=== PATIENT | female | born 1990 | race African-American/Black ===

== ENCOUNTER 2016-04-16 08:49 | Emergency (ER) | payer OTHER ==
[~2016-04-16] VITALS: Ht 180.3 cm; Wt 113.5 kg
[~2016-04-16 08:49] MED LIST: ACYC200C PO; DIVA500T69 PO; LURA80 PO; VITAD1000 PO
[2016-04-16 09:24] VITALS: BP 140/77
== END 2016-04-16 10:20 | disposition left against medical advice (07) ==
LOC: EMS 08:51
DX: R11.2 Nausea with vomiting, unspecified (principal); R19.7 Diarrhea, unspecified; K21.9 Gastro-esophageal reflux disease without esophagitis; F12.90 Cannabis use, unspecified, uncomplicated; F17.210 Nicotine dependence, cigarettes, uncomplicated; Z53.21 Procedure and treatment not carried out due to patient leaving prior to being seen by health care provider

== ENCOUNTER 2020-12-03 06:47 | Inpatient (IN) | payer MEDICAID, MEDICARE, OTHER ==
[~2020-12-03] VITALS: Ht 180.3 cm; Wt 121.3 kg
[~2020-12-03 06:47] MED LIST changes: -ACYC200C PO; +ACYC200C24 PO; -LURA80 PO; +LURA80TA2 PO; -VITAD1000 PO
[2020-12-03] MEDS ORDERED: LORazepam 2 MG/ML VIAL IM ONE (07:30)
[2020-12-03] MEDS ORDERED: HALOPERIDOL LACTATE 5 MG/ML VIAL IM ONE (07:30)
[2020-12-03 07:46] LABS: BASOPHILS % (AUTO) 0.5 % (0.0-2.0); EOSINOPHILS % (AUTO) 0.1 % (1.0-6.0); HEMATOCRIT 38.9 % (36-46); HEMOGLOBIN 13.1 g/dL (12.0-16.0); LYMPHOCYTES # (AUTO) 2.4 K/uL (1.0-4.8); LYMPHOCYTES % (AUTO) 22.5 % (22.0-44.0); MEAN CORPUSCULAR HEMOGLOBIN 29.9 pg (26.0-34.0); MEAN CORPUSCULAR HGB CONC 33.7 G/dL (31.0-37.0); MEAN CORPUSCULAR VOLUME 89 fL (80-100); MONOCYTES # (AUTO) 0.6 K/uL (0.1-1.0); MONOCYTES % (AUTO) 5.4 % (2.0-9.0); NEUTROPHILS # (AUTO) 7.5 K/uL (1.8-7.7); NEUTROPHILS % (AUTO) 71.5 % (40.0-70.0); PLATELET COUNT (AUTO) 216 K/uL (150-450); RED BLOOD CELL COUNT(AUTO) 4.38 MIL/uL (4.00-5.20); RED CELL DISTRIBUTION WIDTH 13.4 % (11.5-14.5)
[2020-12-03 08:08] LABS: ANION GAP 12 mmol/L (8-16); CALCIUM, TOTAL 8.4 mg/dL (8.8-10.5); CARBON DIOXIDE 23 mmol/L (22-29); CHLORIDE 103 mmol/L (98-107); CREATININE 0.91 mg/dL (0.60-1.30); GLOMERULAR FILTR. RATE CALC > 60 mL/min (>60); GLUCOSE,RANDOM 131 mg/dL (70-110); POTASSIUM 3.4 mmol/L (3.5-5.1); SODIUM SERUM 138 mmol/L (136-145); UREA NITROGEN, BLOOD 6 mg/dL (7-18)
[2020-12-03 08:13] LABS: ALANINE AMINOTRANSFERASE 24 U/L (12-78); ALBUMIN 3.8 g/dL (3.4-5.0); ALKALINE PHOSPHATASE 66 U/L (46-116); ASPARTATE AMINOTRANSFERASE 17 U/L (15-37); BILIRUBIN,TOTAL 0.3 mg/dL (0.1-1.0); TOTAL PROTEIN, SERUM 7.7 g/dL (6.4-8.2)
[2020-12-03 08:16] LABS: AMPHET/METH SCREEN,URINE NEGATIVE (NEGATIVE); BARBITURATE SCREEN, URINE NEGATIVE (NEGATIVE); BENZODIAZEPINES SCREEN,URINE NEGATIVE (NEGATIVE); CANNABINOID SCREEN,URINE POSITIVE (NEGATIVE); COCAINE SCREEN,URINE NEGATIVE (NEGATIVE); METHADONE SCREEN, URINE NEGATIVE (NEGATIVE); OPIATE SCREEN,URINE NEGATIVE (NEGATIVE)
[2020-12-03 08:17] LABS: PHENCYCLIDINE SCREEN,URINE NEGATIVE (NEGATIVE)
[2020-12-03 08:31] LABS: VALPROIC ACID 51 mcg/mL (50-100)
[2020-12-03] MEDS ORDERED: POTASSIUM CHLORIDE 10% 40 MEQ/30 ML LIQUID UDCUP PO ONE ×2 (09:30)
[2020-12-03] MEDS ORDERED: HALOPERIDOL 5 MG TABLET PO PRN (09:45)
[2020-12-03 10:11] LABS: COVID AG,FIA SOURCE NASOPHARYNGEAL
[2020-12-03] MEDS ORDERED: DiphenhydrAMINE HCL 25 MG CAPSULE PO ONE (10:30)
[2020-12-03] MEDS ORDERED: DIVALPROEX SODIUM 500 MG ER TABLET PO ONE (10:30)
[2020-12-03] MEDS ORDERED: LORazepam 2 MG TABLET PO ONE (16:15)
[2020-12-03 18:03] VITALS: BP 148/94
[2020-12-04 00:19] VITALS: BP 138/80
[2020-12-04 01:25] LABS: CHOL/HDL RATIO 2.7 (3.9-5.7); CHOLESTEROL 112 mg/dL (131-200); HDL CHOLESTEROL 42 mg/dL (40-60); LDL CHOL (CALC.) 61 mg/dL (0-130); TRIGLYCERIDES 43 mg/dL (15-150)
[2020-12-04 02:59] VITALS: BP 131/91
[2020-12-04] MEDS: ZOLPIDEM TARTRATE 10 MG TABLET PO PRN ×2 (03:01→19:45)
[2020-12-04] MEDS ORDERED: INFLUENZA VIRUS VACCINE QVS 2021-22 (6MO+)/PF 60 MCG/0.5 ML SYRINGE IM. ONE (06:15)
[2020-12-04 07:55] LABS: HEMOGLOBIN A1C 5.1 % (3.8-5.6)
[2020-12-04] MEDS: LORazepam 2 MG TABLET PO PRN ×2 (08:02→11:47)
[2020-12-04 08:11] LABS: CHOL/HDL RATIO 2.9 (3.9-5.7); POTASSIUM 4.1 mmol/L (3.5-5.1); THYROID STIMULATING HORMONE 1.6 uIU/mL (0.36-3.74)
[2020-12-04 08:44] VITALS: BP 134/72
[2020-12-04] MEDS: LURASIDONE HCL 80 MG TABLET PO SCH (11:43)
[2020-12-04] MEDS: DIVALPROEX SODIUM 500 MG DR TABLET PO SCH ×2 (11:43→16:14)
[2020-12-04] MEDS ORDERED: IBUPROFEN 400 MG TABLET PO PRN (11:45)
[2020-12-04] MEDS ORDERED: NICOTINE 14 MG/24 HOUR PATCH TD PRN (11:45)
[2020-12-04] MEDS ORDERED: MAGNESIUM HYDROXIDE SUSPENSION 30 ML UDCUP PO PRN (11:45)
[2020-12-04] MEDS ORDERED: GuaiFENesin/D-METHORPHAN [SUGAR-FREE] 200-20MG/10 ML SYRUP UDCUP PO PRN (11:45)
[2020-12-04] MEDS ORDERED: DOCUSATE SODIUM 100 MG CAPSULE PO PRN (11:45)
[2020-12-04] MEDS ORDERED: PETROLATUM,WHITE 28 GM JELLY TP PRN (11:45)
[2020-12-04] MEDS ORDERED: ONDANSETRON HCL 4 MG TABLET PO PRN (11:45)
[2020-12-04] MEDS ORDERED: CloNIDine HCL 0.1 MG TABLET PO PRN (11:45)
[2020-12-04] MEDS ORDERED: ALBUTEROL SULFATE HFA 90 MCG/PUFF 8 GM INHALER IH PRN (11:45)
[2020-12-04] MEDS ORDERED: LOPERAMIDE HCL 2 MG CAPSULE PO PRN (11:45)
[2020-12-04] MEDS ORDERED: ACETAMINOPHEN 325 MG TABLET PO PRN (11:45)
[2020-12-04] MEDS ORDERED: MAG HYDROX/AL HYDROX/SIMETH ES 30 ML SUSPENSION UDCUP PO PRN (11:45)
[2020-12-04 13:30] VITALS: BP 147/102
[2020-12-04 13:35] VITALS: BP 129/68
[2020-12-04 16:15] VITALS: BP 131/75
[2020-12-05 00:44] VITALS: BP 128/72
[2020-12-05] MEDS: LURASIDONE HCL 80 MG TABLET PO SCH (06:16)
[2020-12-05] MEDS: DIVALPROEX SODIUM 500 MG DR TABLET PO SCH ×2 (08:20→16:35)
[2020-12-05 08:50] VITALS: BP 135/78
[2020-12-05 13:45] VITALS: BP 135/78
[2020-12-05 16:21] VITALS: BP 113/74
[2020-12-05] MEDS: ZOLPIDEM TARTRATE 10 MG TABLET PO PRN (20:31)
[2020-12-06 01:50] VITALS: BP 135/81
[2020-12-06] MEDS: LURASIDONE HCL 80 MG TABLET PO SCH (06:36)
[2020-12-06] MEDS: DIVALPROEX SODIUM 500 MG DR TABLET PO SCH (08:33)
[2020-12-06 08:41] VITALS: BP 117/67
== END 2020-12-06 16:00 | disposition home or self-care (01) | DRG 753 ==
LOC: EMS 06:49 → B3A 15:34 → B2X 17:09 → B2S 12-05 09:24
PROVIDERS: ADMIT Psychiatry & Neurology Child & Adolescent Psychiatry; ATTEND Psychiatry & Neurology Child & Adolescent Psychiatry
DX: F31.2 Bipolar disorder, current episode manic severe with psychotic features (principal); E66.9 Obesity, unspecified; E87.6 Hypokalemia; K21.9 Gastro-esophageal reflux disease without esophagitis; Z20.822 Contact with and (suspected) exposure to COVID-19; F17.210 Nicotine dependence, cigarettes, uncomplicated; F19.10 Other psychoactive substance abuse, uncomplicated; Z68.37 Body mass index [BMI] 37.0-37.9, adult; Z28.21 Immunization not carried out because of patient refusal; Z79.899 Other long term (current) drug therapy; Z78.1 Physical restraint status
CPT/HCPCS: 80053; 80061; 80164; 83036; 84132; 84443; 84703; 85025; 99291; G0480; J1630; J2060

== ENCOUNTER 2021-09-03 10:47 | Emergency (ER) | payer MEDICAID, OTHER ==
[~2021-09-03] VITALS: Ht 180.3 cm; Wt 125.0 kg
[~2021-09-03 10:47] MED LIST changes: -ACYC200C24 PO
[2021-09-03 12:38] LABS: BASOPHILS % (AUTO) 0.3 % (0.0-2.0); EOSINOPHILS % (AUTO) 0.1 % (1.0-6.0); HEMATOCRIT 40.7 % (36-46); HEMOGLOBIN 13.8 g/dL (12.0-16.0); LYMPHOCYTES # (AUTO) 3.3 K/uL (1.0-4.8); LYMPHOCYTES % (AUTO) 28.6 % (22.0-44.0); MEAN CORPUSCULAR HGB CONC 33.8 G/dL (31.0-37.0); MEAN CORPUSCULAR VOLUME 89 fL (80-100); MONOCYTES # (AUTO) 0.7 K/uL (0.1-1.0); MONOCYTES % (AUTO) 5.6 % (2.0-9.0); NEUTROPHILS # (AUTO) 7.6 K/uL (1.8-7.7); NEUTROPHILS % (AUTO) 65.4 % (40.0-70.0); PLATELET COUNT (AUTO) 238 K/uL (150-450); RED BLOOD CELL COUNT(AUTO) 4.58 MIL/uL (4.00-5.20); RED CELL DISTRIBUTION WIDTH 13.8 % (11.5-14.5)
[2021-09-03 12:44] LABS: ANION GAP 12 mmol/L (8-16); CALCIUM, TOTAL 9.7 mg/dL (8.8-10.5); CARBON DIOXIDE 25 mmol/L (22-29); CHLORIDE 106 mmol/L (98-107); CREATININE 0.75 mg/dL (0.60-1.30); GLOMERULAR FILTR. RATE CALC > 60 mL/min (>60); GLUCOSE,RANDOM 105 mg/dL (70-110); POTASSIUM 3.8 mmol/L (3.5-5.1); SODIUM SERUM 143 mmol/L (136-145); UREA NITROGEN, BLOOD 8 mg/dL (7-18)
[2021-09-03] MEDS ORDERED: DiphenhydrAMINE HCL 50 MG/ML VIAL IM ONE (12:45)
[2021-09-03 12:58] LABS: ALANINE AMINOTRANSFERASE 19 U/L (12-78); ALKALINE PHOSPHATASE 60 U/L (46-116); ASPARTATE AMINOTRANSFERASE 11 U/L (15-37); BILIRUBIN,TOTAL 0.2 mg/dL (0.1-1.0); HCG,QUANTITATIVE < 1 mIU/mL (0-6); THYROID STIMULATING HORMONE 2.27 uIU/mL (0.36-3.74); TOTAL PROTEIN, SERUM 8.3 g/dL (6.4-8.2); VALPROIC ACID 79 mcg/mL (50-100)
[2021-09-03 13:11] VITALS: BP 140/73
== END 2021-09-03 13:13 | disposition home or self-care (01) ==
LOC: EMS 10:47
DX: F31.9 Bipolar disorder, unspecified (principal); G47.00 Insomnia, unspecified; F17.210 Nicotine dependence, cigarettes, uncomplicated; Z56.0 Unemployment, unspecified; Z87.19 Personal history of other diseases of the digestive system; Z87.09 Personal history of other diseases of the respiratory system
CPT/HCPCS: 99283; 80053; 80164; 84443; 84702; 85025; 36415; 96372; G0480; J1200

== ENCOUNTER 2021-09-07 04:50 | Emergency (ER) | payer OTHER ==
[~2021-09-07] VITALS: Ht 180.3 cm; Wt 125.0 kg
[2021-09-07 04:51] VITALS: BP 165/89
[2021-09-08] MEDS ORDERED: TRAZ-257 PO (11:33)
[2021-09-08] MEDS ORDERED: DIVA-112 PO (11:33)
[2021-09-08] MEDS ORDERED: OLAN10 PO (11:33)
== END 2021-09-07 05:40 | disposition left against medical advice (07) ==
LOC: EMS 04:51
DX: Z53.21 Procedure and treatment not carried out due to patient leaving prior to being seen by health care provider (principal)

== ENCOUNTER 2021-09-07 07:21 | Inpatient (IN) | payer MEDICAID, OTHER ==
[~2021-09-07] VITALS: Ht 180.3 cm; Wt 124.1 kg
[2021-09-07 08:16] LABS: BASOPHILS % (AUTO) 0.2 % (0.0-2.0); EOSINOPHILS % (AUTO) 0.2 % (1.0-6.0); HEMATOCRIT 36.9 % (36-46); HEMOGLOBIN 12.5 g/dL (12.0-16.0); LYMPHOCYTES # (AUTO) 2.7 K/uL (1.0-4.8); LYMPHOCYTES % (AUTO) 26.7 % (22.0-44.0); MEAN CORPUSCULAR HEMOGLOBIN 30.2 pg (26.0-34.0); MEAN CORPUSCULAR VOLUME 89 fL (80-100); MONOCYTES # (AUTO) 0.6 K/uL (0.1-1.0); MONOCYTES % (AUTO) 5.9 % (2.0-9.0); NEUTROPHILS # (AUTO) 6.9 K/uL (1.8-7.7); PLATELET COUNT (AUTO) 212 K/uL (150-450); RED BLOOD CELL COUNT(AUTO) 4.16 MIL/uL (4.00-5.20); RED CELL DISTRIBUTION WIDTH 13.4 % (11.5-14.5)
[2021-09-07 08:24] LABS: ANION GAP 11 mmol/L (8-16); CALCIUM, TOTAL 8.9 mg/dL (8.8-10.5); CARBON DIOXIDE 24 mmol/L (22-29); CHLORIDE 104 mmol/L (98-107); CREATININE 0.96 mg/dL (0.60-1.30); GLUCOSE,RANDOM 123 mg/dL (70-110); POTASSIUM 4.1 mmol/L (3.5-5.1); SODIUM SERUM 139 mmol/L (136-145); UREA NITROGEN, BLOOD 7 mg/dL (7-18)
[2021-09-07 08:26] LABS: GLOMERULAR FILTR. RATE CALC > 60 mL/min (>60)
[2021-09-07 08:29] LABS: ALANINE AMINOTRANSFERASE 20 U/L (12-78); ALBUMIN 3.4 g/dL (3.4-5.0); ASPARTATE AMINOTRANSFERASE 18 U/L (15-37)
[2021-09-07 08:38] LABS: AMPHET/METH SCREEN,URINE NEGATIVE (NEGATIVE); BARBITURATE SCREEN, URINE NEGATIVE (NEGATIVE); BENZODIAZEPINES SCREEN,URINE NEGATIVE (NEGATIVE); CANNABINOID SCREEN,URINE POSITIVE (NEGATIVE); COCAINE SCREEN,URINE NEGATIVE (NEGATIVE); METHADONE SCREEN, URINE NEGATIVE (NEGATIVE); OPIATE SCREEN,URINE NEGATIVE (NEGATIVE); PHENCYCLIDINE SCREEN,URINE NEGATIVE (NEGATIVE)
[2021-09-07 08:46] LABS: ALKALINE PHOSPHATASE 60 U/L (46-116); BILIRUBIN,TOTAL 0.2 mg/dL (0.1-1.0); TOTAL PROTEIN, SERUM 7.3 g/dL (6.4-8.2)
[2021-09-07 09:13] LABS: COVID AG,FIA SOURCE NASAL SWAB
[2021-09-07] MEDS ORDERED: LORazepam 1 MG TABLET PO ONE (10:45)
[2021-09-07] MEDS ORDERED: HALOPERIDOL 5 MG TABLET PO PRN (11:30)
[2021-09-07] MEDS: ZOLPIDEM TARTRATE 10 MG TABLET PO PRN (17:09)
[2021-09-07] MEDS: LORazepam 2 MG TABLET PO PRN (19:55)
[2021-09-08 01:42] LABS: HCG,QUANTITATIVE < 1 mIU/mL (0-6)
[2021-09-08 02:00] VITALS: BP 141/93
[2021-09-08] MEDS ORDERED: NICOTINE 14 MG/24 HOUR PATCH TD PRN (05:30)
[2021-09-08] MEDS ORDERED: GuaiFENesin/D-METHORPHAN [SUGAR-FREE] 200-20MG/10 ML SYRUP UDCUP PO PRN (05:30)
[2021-09-08] MEDS ORDERED: MAGNESIUM HYDROXIDE SUSPENSION 30 ML UDCUP PO PRN (05:30)
[2021-09-08] MEDS ORDERED: ALBUTEROL SULFATE HFA 90 MCG/PUFF 8 GM INHALER IH PRN (05:30)
[2021-09-08] MEDS ORDERED: IBUPROFEN 400 MG TABLET PO PRN (05:30)
[2021-09-08] MEDS ORDERED: LOPERAMIDE HCL 2 MG CAPSULE PO PRN (05:30)
[2021-09-08] MEDS ORDERED: CloNIDine HCL 0.1 MG TABLET PO PRN (05:30)
[2021-09-08] MEDS ORDERED: ONDANSETRON HCL 4 MG TABLET PO PRN (05:30)
[2021-09-08] MEDS ORDERED: MAG HYDROX/AL HYDROX/SIMETH ES 30 ML SUSPENSION UDCUP PO PRN (05:30)
[2021-09-08] MEDS ORDERED: ACETAMINOPHEN 325 MG TABLET PO PRN (05:30)
[2021-09-08] MEDS ORDERED: DOCUSATE SODIUM 100 MG CAPSULE PO PRN (05:30)
[2021-09-08] MEDS: PETROLATUM,WHITE 28 GM JELLY TP PRN (06:39)
[2021-09-08 09:20] VITALS: BP 151/90
[2021-09-08] MEDS ORDERED: OLAN10 PO (11:33)
[2021-09-08] MEDS ORDERED: DIVA-112 PO (11:33)
[2021-09-08] MEDS ORDERED: TRAZ-257 PO (11:33)
[2021-09-08] MEDS ORDERED: DIVALPROEX SODIUM 500 MG DR TABLET PO SCH (11:45)
[2021-09-08] MEDS: DIVALPROEX SODIUM 250 MG DR TABLET PO SCH ×2 (15:13→20:21)
[2021-09-08] MEDS: TraZODone HCL 100 MG TABLET PO SCH (20:21)
[2021-09-08] MEDS: OLANZapine 10 MG TABLET PO SCH (20:21)
[2021-09-08] MEDS: ZOLPIDEM TARTRATE 10 MG TABLET PO PRN (22:17)
[2021-09-09 05:05] VITALS: BP 136/90
[2021-09-09] MEDS: DIVALPROEX SODIUM 250 MG DR TABLET PO SCH ×2 (08:06→20:06)
[2021-09-09] MEDS: LORazepam 2 MG TABLET PO PRN (08:07)
[2021-09-09 08:38] VITALS: BP 150/85
[2021-09-09] MEDS ORDERED: LURA80TA2 PO (12:47)
[2021-09-09 16:29] VITALS: BP 160/79
[2021-09-09] MEDS: TraZODone HCL 100 MG TABLET PO SCH (20:06)
[2021-09-09] MEDS: OLANZapine 10 MG TABLET PO SCH (20:06)
[2021-09-10] MEDS: ZOLPIDEM TARTRATE 10 MG TABLET PO PRN (02:24)
[2021-09-10] MEDS: LORazepam 2 MG TABLET PO PRN (07:02)
[2021-09-10] MEDS: DIVALPROEX SODIUM 250 MG DR TABLET PO SCH ×2 (08:40→21:06)
[2021-09-10 08:51] VITALS: BP 132/97
[2021-09-10] MEDS: OLANZapine 10 MG TABLET PO SCH ×2 (12:58→21:06)
[2021-09-10 16:05] VITALS: BP 115/86
[2021-09-10] MEDS: TraZODone HCL 100 MG TABLET PO SCH (21:06)
[2021-09-10] MEDS: PETROLATUM,WHITE 28 GM JELLY TP PRN (21:07)
[2021-09-11 02:30] VITALS: BP 135/86
[2021-09-11] MEDS: DIVALPROEX SODIUM 250 MG DR TABLET PO SCH ×2 (09:44→20:44)
[2021-09-11] MEDS: OLANZapine 10 MG TABLET PO SCH ×2 (09:44→20:44)
[2021-09-11 09:47] VITALS: BP 138/77
[2021-09-11 16:16] VITALS: BP 135/84
[2021-09-11] MEDS: TraZODone HCL 100 MG TABLET PO SCH (20:44)
[2021-09-12 08:01] VITALS: BP 124/66
[2021-09-12] MEDS: DIVALPROEX SODIUM 250 MG DR TABLET PO SCH ×2 (08:17→20:09)
[2021-09-12] MEDS: OLANZapine 10 MG TABLET PO SCH ×2 (08:18→20:09)
[2021-09-12 16:00] VITALS: BP 119/69
[2021-09-12] MEDS: TraZODone HCL 100 MG TABLET PO SCH (20:09)
[2021-09-13 07:06] LABS: COVID AG,FIA SOURCE NASAL SWAB
[2021-09-13 08:06] VITALS: BP 143/92
[2021-09-13] MEDS: OLANZapine 10 MG TABLET PO SCH (08:47)
[2021-09-13] MEDS: DIVALPROEX SODIUM 250 MG DR TABLET PO SCH (08:47)
[2021-09-13] MEDS ORDERED: TRAZ-257 PO (13:20)
[2021-09-13] MEDS ORDERED: OLAN10 PO (13:20)
[2021-09-13] MEDS ORDERED: DIVA-112 PO (13:20)
== END 2021-09-13 16:00 | disposition home or self-care (01) | DRG 753 ==
LOC: EMS 07:24 → 3EI 09-08 00:18
PROVIDERS: ADMIT Psychiatry & Neurology Psychiatry; ATTEND Psychiatry & Neurology Psychiatry
DX: F31.63 Bipolar disorder, current episode mixed, severe, without psychotic features (principal); R45.851 Suicidal ideations; E66.9 Obesity, unspecified; F10.10 Alcohol abuse, uncomplicated; F12.10 Cannabis abuse, uncomplicated; K21.9 Gastro-esophageal reflux disease without esophagitis; Z20.822 Contact with and (suspected) exposure to COVID-19; Z79.899 Other long term (current) drug therapy; Z87.891 Personal history of nicotine dependence; Z91.51 Personal history of suicidal behavior; Z68.38 Body mass index [BMI] 38.0-38.9, adult
CPT/HCPCS: 80053; 84702; 85025; 99285; G0480